=== PATIENT | female | born 1930 | race Caucasian/White ===

== ENCOUNTER 2017-03-23 12:33 | Outpatient (CLI) | payer MEDICARE, BC ==
--- NOTE | 2017-03-23 14:43 | RAD ---
PA AND LATERAL OF THE CHEST: INDICATIONS: History of dyspnea. COMPARISON: Prior exam dated 03/11/2016. FINDINGS: There are patchy air space opacities present within the right upper lobe, suspicious for changes of e ither worsening bronchiolitis or pneumonia. This is superimposed on scattered areas of bronchiectasi s and fibrotic change. No pleural effusion or pneumothorax is evident. The cardiomediastinal silhou ette is within normal limits. Diffuse osteopenia and chronic osseous changes are stable. IMPRESSION: Worsening bronchiolitis or bronchopneumonia of the right upper lobe. Radiograph followup to resoluti on is recommended. POS: [facility]
== END 2017-03-23 12:34 | disposition home or self-care (01) ==
LOC: RAD 12:33
PROVIDERS: ATTEND Internal Medicine Critical Care Medicine
DX: R06.00 Dyspnea, unspecified (principal); J98.4 Other disorders of lung
CPT/HCPCS: 71046